=== PATIENT | male | born 1995 | race American Indian/Alaskan Native ===

== ENCOUNTER 2017-02-23 02:30 | Emergency (ER) | payer SELFPAY ==
[2017-02-23 03:32] LABS: Basophils % (Auto) 1.1 % (0.0-1.8); Eosinophils % (Auto) 1.4 % (0.0-4.3); Hematocrit 49.4 % (35.5-45.6); Hemoglobin 16.5 gm/dl (11.8-15.2); Mean Corpuscular HGB Conc 33 % (32-34); Mean Corpuscular Hemoglobin 28 pg (28-32); Mean Corpuscular Volume 84 fl (84-94); Platelet Count 231 K/mm3 (140-440); Red Blood Count 5.85 M/mm3 (3.65-5.03); Red Cell Distribution Width 13.5 % (13.2-15.2); White Blood Count 9.2 K/mm3 (4.5-11.0)
[2017-02-23 03:43] LABS: INR 1.01 (0.87-1.13)
[2017-02-23 03:44] LABS: Partial Thromboplastin Time 31.5 Sec. (24.2-36.6)
[2017-02-23 03:52] LABS: Anion Gap 24 mmol/L; BUN/Creatinine Ratio 11.25; Blood Urea Nitrogen 9 mg/dL (9-20); Calcium 9.8 mg/dL (8.4-10.2); Carbon Dioxide 22 mmol/L (22-30); Chloride 99.5 mmol/L (98-107); Glucose 94 mg/dL (75-100); Potassium 4.1 mmol/L (3.6-5.0); Sodium 141 mmol/L (137-145)
--- NOTE | 2017-02-23 08:01 | Emergency Department Report ---
HPI - General Chief Complaint: Chest Pain Time Seen by Provider: 02/23/17 07:56 - HPI HPI: patient c/o mid chest pain 12 hrs ago, after smoking mdma, feels fine now. patient states pain was 4/10, sharp, mid chest, without radiation. no fever, no sob, no diaphoresis, or n/v. patient has smoked mdma before and has had similar episodes of chest discomfort, he always get it out checked out according to him. ED Past Medical Hx - Past Medical History Previous Medical History?: Yes Hx Asthma: Yes - Surgical History Past Surgical History?: No - Family History Family history: hypertension - Social History Smoking Status: Current Every Day Smoker Substance Use Type: Marijuana, Other - Medications Home Medications: Home Medications Medication Instructions Recorded Confirmed Last Taken Type No Known Home Medications [No 02/23/17 02/23/17 Unknown History Reported Home Medications] ED Review of Systems ROS: Stated complaint: CP Other details as noted in HPI Comment: All other systems reviewed and negative Respiratory: no symptoms reported Cardiovascular: chest pain Physical Exam - Physical Exam Vital Signs: Vital Signs 02/23/17 02/23/17 02/23/17 02:41 05:39 07:32 Temperature 98.8 F 98.5 F Pulse Rate 120 H 118 H Respiratory 18 18 18 Rate Blood Pressure 117/82 116/80 O2 Sat by Pulse 100 100 100 Oximetry Physical Exam: gen: alert and oriented x3, Tearful heent: perrla, eomi cv: rrr, nl s1, s2 lungs: cta bila abd: s,nt,nd, pos bs ext: no edema gu: pt refused neuro: no deficits psych: normal mood skin: normal turgor ED Course Vital Signs 02/23/17 02/23/17 02/23/17 02:41 05:39 07:32 Temperature 98.8 F 98.5 F Pulse Rate 120 H 118 H Respiratory 18 18 18 Rate Blood Pressure 117/82 116/80 O2 Sat by Pulse 100 100 100 Oximetry ED Medical Decision Making - Lab Data Result diagrams: 02/23/17 02:56 02/23/17 02:56 Critical care attestation.: If time is entered above; I have spent that time in minutes in the direct care of this critically ill patient, excluding procedure time. ED Disposition Clinical Impression: Chest pain, Substance abuse Disposition: DC-01 TO HOME OR SELFCARE Is pt being admited?: No Does the pt Need Aspirin: No Condition: Stable Instructions: Chest Pain (ED), Polysubstance Abuse (ED) Referrals: PRIMARY CARE,MD [Primary Care Provider] - 3-5 Days
[2017-02-23 08:09] VITALS: BP 121/76
== END 2017-02-23 08:08 | disposition home or self-care (01) ==
LOC: ED 02:30
DX: R07.9 Chest pain, unspecified (principal); J45.909 Unspecified asthma, uncomplicated; F17.210 Nicotine dependence, cigarettes, uncomplicated; F12.10 Cannabis abuse, uncomplicated
CPT/HCPCS: 36415; 80048; 84484; 85025; 85610; 85730; 93005; 93010; 99284

== ENCOUNTER 2018-01-19 19:10 | Emergency (ER) | payer SELFPAY ==
[2018-01-19 19:20] VITALS: BP 134/74
--- NOTE | 2018-01-19 23:14 | Emergency Department Report ---
ED ENT HPI - General Chief complaint: Dental/Oral Stated complaint: TOOTHACHE Time Seen by Provider: 01/19/18 22:48 Source: patient Mode of arrival: Ambulatory Limitations: No Limitations - History of Present Illness Initial comments: This is a 23-year-old male here presenting with dental pain 3 days. He said he sat up into his right jaw and right lower back tooth. He states a 1 g of Tylenol prior to coming to the emergency room but it didn't help his pain. Reports pain is 10/10 worse with eating. No alleviating factors. Denies a sore throat, difficulty breathing, cough, nasal congestion, runny nose or fever and or chills. Patient's here to be evaluated. He has no dentist MD complaint: tooth pain Onset/Timin -: days(s) Location: tooth # 1 - #32 Severity: severe Severity scale (0 -10): 10 Quality: aching Consistency: constant Improves with: none Worsens with: eating Context- Dental: history of dental caries, poor dental care Associated Symptoms: toothache. denies: fever, cough, gum swelling, pain with swallowing, sore throat, tinnitus, hearing loss, discharge from ear, rhinorrhea - Related Data Previous Rx's Medication Instructions Recorded Last Taken Type Acetaminophen/Codeine [Tylenol 1 tab PO Q6H PRN #15 tab 01/19/18 Unknown Rx /Codeine # 3 tab] Amoxicillin 500 mg PO Q8H 10 Days #30 capsule 01/19/18 Unknown Rx Ibuprofen [Motrin] 600 mg PO Q8H PRN #15 tablet 01/19/18 Unknown Rx Allergies Allergy/AdvReac Type Severity Reaction Status Date / Time No Known Allergies Allergy Verified 02/23/17 02:41 ED Dental HPI - General Chief complaint: Dental/Oral Stated complaint: TOOTHACHE Time Seen by Provider: 01/19/18 22:48 Source: patient Mode of arrival: Ambulatory Limitations: No Limitations - Related Data Previous Rx's Medication Instructions Recorded Last Taken Type Acetaminophen/Codeine [Tylenol 1 tab PO Q6H PRN #15 tab 01/19/18 Unknown Rx /Codeine # 3 tab] Amoxicillin 500 mg PO Q8H 10 Days #30 capsule 01/19/18 Unknown Rx Ibuprofen [Motrin] 600 mg PO Q8H PRN #15 tablet 01/19/18 Unknown Rx Allergies Allergy/AdvReac Type Severity Reaction Status Date / Time No Known Allergies Allergy Verified 02/23/17 02:41 ED Review of Systems ROS: Stated complaint: TOOTHACHE Other details as noted in HPI Constitutional: denies: chills, fever Eyes: denies: eye pain, eye discharge, vision change ENT: dental pain. denies: ear pain, throat pain, congestion Respiratory: denies: cough, shortness of breath, SOB with exertion, SOB at rest , wheezing Cardiovascular: syncope. denies: chest pain, palpitations Gastrointestinal: denies: nausea, vomiting Skin: denies: rash, lesions ED Past Medical Hx - Past Medical History Previous Medical History?: Yes Hx Asthma: Yes - Surgical History Past Surgical History?: No - Family History Family history: no significant - Social History Smoking Status: Current Every Day Smoker Substance Use Type: Marijuana - Medications Home Medications: Home Medications Medication Instructions Recorded Confirmed Last Taken Type Acetaminophen/Codeine [Tylenol 1 tab PO Q6H PRN #15 tab 01/19/18 Unknown Rx /Codeine # 3 tab] Amoxicillin 500 mg PO Q8H 10 Days #30 capsule 01/19/18 Unknown Rx Ibuprofen [Motrin] 600 mg PO Q8H PRN #15 tablet 01/19/18 Unknown Rx ED Physical Exam - General Limitations: No Limitations General appearance: alert, in no apparent distress - Head Head exam: Present: atraumatic, normocephalic - Eye Eye exam: Present: normal appearance, PERRL, EOMI Pupils: Present: normal accommodation - ENT ENT exam: Present: normal orophraynx, mucous membranes moist, TM's normal bilaterally, normal external ear exam - Expanded ENT Exam Expanded Mouth exam: Present: normal external inspection Teeth exam: Present: dental caries, dental tenderness #. Absent: fractured tooth # 1 - Dental Tenderness (#32. No induration or fluctuance.), Other (positive dental caries) - Neck Neck exam: Present: normal inspection, full ROM. Absent: tenderness - Respiratory Respiratory exam: Present: normal lung sounds bilaterally. Absent: respiratory distress, chest wall tenderness - Cardiovascular Cardiovascular Exam: Present: regular rate, normal rhythm, normal heart sounds. Absent: systolic murmur, diastolic murmur - Neurological Exam Neurological exam: Present: alert, oriented X3, normal gait - Psychiatric Psychiatric exam: Present: normal affect, normal mood - Skin Skin exam: Present: warm, dry, intact, normal color. Absent: rash ED Course Vital Signs 01/19/18 19:14 Temperature 98.5 F Pulse Rate 75 Respiratory 18 Rate Blood Pressure 134/74 O2 Sat by Pulse 99 Oximetry - Reevaluation(s) Reevaluation #1: 01/19/18 23:51 Patient given Motrin 800 mg. Emergency room for pain. ED Medical Decision Making - Medical Decision Making Patient presents to emergency room report toothache 3 days. He's been taking Tylenol [id number] without any relief. Patient examined and found to have dental caries and dental tenderness to tooth 32. Oral airways patent and uvula is midline. Tongue is normal. No oropharynx abnormalities. I discussed diagnosis and treatment plan the patient and he voiced understanding. Patient is controlled Motrin. Patient was Motrin 800 mg by mouth emergency room for toothache shortly at this pain. Patient educated on oral care to include Flossing, rinsing with peroxide mouthwash and follow up with dentist to fix underlying dental problem. He voiced understanding of information. Patient discharged home in stable condition with prescription for amoxicillin, Tylenol No. 3 and Motrin. Vital signs are stable he's afebrile. Pain is better. Patient referred to [facility] clinic to follow-up in 2-3 days. Critical care attestation.: If time is entered above; I have spent that time in minutes in the direct care of this critically ill patient, excluding procedure time. ED Disposition Clinical Impression: Dental caries, Tooth ache Disposition: TO HOME OR SELFCARE Is pt being admited?: No Does the pt Need Aspirin: No Condition: Stable Instructions: Dental Caries (ED), Toothache (ED) Additional Instructions: Please do not drive or operate heavy machinery while taking Tylenol No. 3 as this medication cause drowsiness Take antibiotic as prescribed Follow-up with dentist as instructed gargle with Listerine 2-3 times a day Please floss twice daily please increase her fluid intake. Prescriptions: Acetaminophen/Codeine [Tylenol /Codeine # 3 tab] 1 tab PO Q6H PRN #15 tab PRN Reason: severe pain Amoxicillin 500 mg PO Q8H 10 Days #30 capsule Ibuprofen [Motrin] 600 mg PO Q8H PRN #15 tablet PRN Reason: Psychosis Referrals: [facility] [Outside] - 2-3 Days Forms: Work/School Release Form(ED)
[2018-01-19] MEDS ORDERED: MOTRIN PO ONE (23:16)
== END 2018-01-19 23:58 | disposition home or self-care (01) ==
LOC: ED 19:10
DX: K02.9 Dental caries, unspecified (principal); J45.909 Unspecified asthma, uncomplicated; F17.200 Nicotine dependence, unspecified, uncomplicated; F12.90 Cannabis use, unspecified, uncomplicated
CPT/HCPCS: 99282